=== PATIENT | male | born 1950 | race Asian ===

== ENCOUNTER 2016-12-29 03:13 | Inpatient (IN) | payer OTHER ==
[2016-12-29] VITALS (18 sets, daily range): BP systolic 101–152; BP diastolic 62–89
[~2016-12-29] VITALS: Ht 167.6 cm; Wt 69.0 kg
[~2016-12-29 03:13] MED LIST: NORCO 5/3251 TABLET PO
[2016-12-29 03:51] LABS: EOSINOPHIL (%) 2.7 % (0-5); EOSINOPHIL COUNT 0.1 K/uL (0-0.3); IMMATURE GRANULOCYTE (%) 0.5 % (0.0-0.7); INSTRUMENT ABS NEUTROPHIL CT 2.4 K/uL; LYMPHOCYTE COUNT 1.3 K/uL (1.0-2.8); MCHC 32.3 G/DL (30.0-36.0); MCV 92.9 FL (86-99); MEAN PLAT.VOLUME 9.4 uM^3 (9.0-12.4); MONOCYTE (%) 4.7 % (3-12); MONOCYTE COUNT 0.2 K/uL (0-0.8); NEUTROPHIL (%) 58.5 % (45-76); NEUTROPHIL COUNT 2.4 K/uL (1.8-6.4); PLATELET COUNT 171 K/uL (156-360); RBC DIS.WIDTH-CV 12.6 % (11.8-14.6); RBC DIS.WIDTH-SD 42.6 % (39-53); RED BLOOD COUNT 3.23 M/uL (4.00-5.50)
[2016-12-29 04:03] LABS: CHLORIDE 108 mEq/L (99-109); POTASSIUM 3.6 mEq/L (3.7-5.4); SODIUM 140 mEq/L (136-147)
[2016-12-29 04:04] LABS: INTER. NORMALIZED RATIO 1.1; PROTHROMBIN TIME 10.7 (9.2-11.2); PTT 22.9 (25-32)
[2016-12-29 04:05] LABS: GLUCOSE 152 mg/dL (70-99)
[2016-12-29 04:06] LABS: ANION GAP 7 MEQ/L (2-14)
[2016-12-29 04:07] LABS: TOTAL BILIRUBIN 0.4 mg/dL (0.0-1.0)
[2016-12-29 04:08] LABS: ALKALINE PHOSPHATASE 43 IU/L (3-129)
[2016-12-29 04:09] LABS: GFR ESTIMATE (CALCULATED) > 59 mL/min/
[2016-12-29 04:10] LABS: UREA NITROGEN (BUN) 27 mg/dL (9-23)
[2016-12-29 04:12] LABS: LIPASE 26 U/L (1.0-51.0)
[2016-12-29 04:13] LABS: TROP-I INTERPRETATION NEGATIVE; TROPONIN-I < 0.01 ng/mL (0.0-0.30)
[2016-12-29 07:21] LABS: ALKALINE PHOSPHATASE 42 IU/L (3-129); ANION GAP 6 MEQ/L (2-14); CHLORIDE 108 MEQ/L (99-109); GFR ESTIMATE (CALCULATED) > 59 mL/min/; GLUCOSE 145 mg/dL (70-99); SAMPLE HEMOLYSIS CHECK 0; SAMPLE ICTERIC CHECK 0; SAMPLE LIPEMIA CHECK 0; SODIUM 139 MEQ/L (136-147); TOTAL BILIRUBIN 0.4 MG/DL (0.0-1.0); UREA NITROGEN (BUN) 27 mg/dL (9-23)
[2016-12-29 10:28] LABS: METH RESISTANT S AUREUS PCR NEGATIVE (NEGATIVE); PROBE CHECK PASS; SPECIMEN PROCESSING CONTROL PASS
[2016-12-29 13:14] LABS: HEMATOCRIT 34.4 % (38.0-50.0); MCV 91.2 FL (86-99)
[2016-12-29] MEDS ORDERED: AMLODIPINE BESYL5 MG PO (15:24)
[2016-12-29] MEDS ORDERED: LO-DOSE ASPIRIN81 M1 PO (15:41)
[2016-12-29] MEDS ORDERED: LIPITOR10 MG PO ×2 (15:42→18:20)
[2016-12-29 20:34] LABS: HEMATOCRIT 32.3 % (38.0-50.0); MCV 89.5 FL (86-99)
[2016-12-30] VITALS (7 sets, daily range): BP systolic 104–135; BP diastolic 77–89
[2016-12-30 05:56] LABS: HEMATOCRIT 33.9 % (38.0-50.0); MCV 89.9 FL (86-99)
[2016-12-30 12:01] LABS: HEMATOCRIT 33.8 % (38.0-50.0); MCV 89.7 FL (86-99)
[2016-12-30 14:49] LABS: HEMATOCRIT 34.6 % (38.0-50.0); MCV 90.1 FL (86-99)
[2016-12-30] MEDS ORDERED: PANTOPRAZOLE SO40 MG PO (14:52)
== END 2016-12-30 17:00 | disposition home or self-care (01) | DRG 378 ==
LOC: EME → EDBD 03:13 → EDOF 05:48 → 4WEST 05:48 → EDOF 06:18 → 4WEST 07:40
PROVIDERS: Emergency Medicine; Internal Medicine; Internal Medicine Gastroenterology
DX: K25.4 Chronic or unspecified gastric ulcer with hemorrhage (principal); N17.9 Acute kidney failure, unspecified; I95.9 Hypotension, unspecified; T62.91XA Toxic effect of unspecified noxious substance eaten as food, accidental (unintentional), initial encounter; K92.1 Melena; Y92.019 Unspecified place in single-family (private) house as the place of occurrence of the external cause; D50.0 Iron deficiency anemia secondary to blood loss (chronic); E78.5 Hyperlipidemia, unspecified; E87.6 Hypokalemia; I10 Essential (primary) hypertension; Z79.82 Long term (current) use of aspirin; R73.9 Hyperglycemia, unspecified; R19.7 Diarrhea, unspecified; R42 Dizziness and giddiness; R53.1 Weakness; R55 Syncope and collapse
CPT/HCPCS: 71010; 80053; 83690; 84484; 85014; 85018; 85025; 85610; 85730; 86900; 86901; 86920; 87641; 93005; 99281; 99285; C9113; J2405; J2765; J7030; P9016

== ENCOUNTER 2017-11-01 21:21 | Emergency (ER) | payer OTHER ==
[~2017-11-01] VITALS: Ht 162.6 cm; Wt 71.7 kg
[~2017-11-01 21:21] MED LIST changes: +AMLODIPINE BESYL5 MG PO; +LIPITOR10 MG PO; +LO-DOSE ASPIRIN81 M1 PO; +PANTOPRAZOLE SO40 MG PO
[2017-11-01] MEDS ORDERED: ULTRAM50 MG PO (21:55)
[2017-11-01] MEDS ORDERED: NAPROSYN500 MG PO (21:55)
[2017-11-01 22:23] VITALS: BP 127/77
== END 2017-11-01 22:23 | disposition home or self-care (01) ==
LOC: EME 21:21
DX: S49.91XA Unspecified injury of right shoulder and upper arm, initial encounter (principal); X50.3XXA Overexertion from repetitive movements, initial encounter; Y99.0 Civilian activity done for income or pay
CPT/HCPCS: 99281; 99283

== ENCOUNTER 2017-12-18 10:51 | Inpatient (IN) | payer OTHER ==
[~2017-12-18] VITALS: Ht 167.6 cm; Wt 70.6 kg
[~2017-12-18 10:51] MED LIST changes: +NAPROSYN500 MG PO; +ULTRAM50 MG PO
[2017-12-18 11:16] LABS: HEMATOCRIT 38.9 % (38.0-50.0); HEMOGLOBIN 13.2 G/DL (12.5-16.6); MCH 29.6 PG (29.0-34.0); MCHC 33.9 G/DL (30.0-36.0); MCV 87.2 FL (86-99); PLATELET COUNT 272 K/uL (156-360); RBC DIS.WIDTH-CV 16.6 % (11.8-14.6); RBC DIS.WIDTH-SD 53.2 % (39-53); RED BLOOD COUNT 4.46 M/uL (4.00-5.50); WHITE BLOOD COUNT 6.6 K/uL (4.1-10.2)
[2017-12-18 11:27] LABS: CHLORIDE 105 mEq/L (99-109); POTASSIUM 3.8 mEq/L (3.7-5.4); SODIUM 140 mEq/L (136-147)
[2017-12-18 11:29] LABS: GLUCOSE 142 mg/dL (70-99)
[2017-12-18 11:33] LABS: CREATININE 1.1 mg/dL (0.6-1.3); GFR ESTIMATE (CALCULATED) > 59 mL/min/ (58.99-99999)
[2017-12-18 11:34] LABS: UREA NITROGEN (BUN) 27 mg/dL (9-23)
[2017-12-18 11:40] LABS: TROP-I INTERPRETATION NEGATIVE; TROPONIN-I < 0.01 ng/mL (0.0-0.30)
[2017-12-18] MEDS ORDERED: ZOCOR40 MG PO (12:24)
[2017-12-18] MEDS ORDERED: LISINOPRIL20 MG PO (12:25)
[2017-12-18 15:29] VITALS: BP 110/81
[2017-12-18 15:58] LABS: TROP-I INTERPRETATION NEGATIVE; TROPONIN-I < 0.01 ng/mL (0.0-0.30)
[2017-12-18 19:00] VITALS: BP 98/62
[2017-12-18 22:35] VITALS: BP 109/77
[2017-12-19] VITALS (10 sets, daily range): BP systolic 103–158; BP diastolic 67–95
[2017-12-19 04:37] LABS: HEMATOCRIT 35.5 % (38.0-50.0); HEMOGLOBIN 12.3 G/DL (12.5-16.6); MCH 29.9 PG (29.0-34.0); MCHC 34.6 G/DL (30.0-36.0); MCV 86.4 FL (86-99); PLATELET COUNT 251 K/uL (156-360); RBC DIS.WIDTH-CV 16.8 % (11.8-14.6); RBC DIS.WIDTH-SD 53.6 % (39-53); RED BLOOD COUNT 4.11 M/uL (4.00-5.50); WHITE BLOOD COUNT 4.9 K/uL (4.1-10.2)
[2017-12-19 05:05] LABS: CHLORIDE 106 mEq/L (99-109); POTASSIUM 3.7 mEq/L (3.7-5.4); SODIUM 142 mEq/L (136-147)
[2017-12-19 05:07] LABS: GLUCOSE 130 mg/dL (70-99)
[2017-12-19 05:11] LABS: CREATININE 0.8 mg/dL (0.6-1.3); GFR ESTIMATE (CALCULATED) > 59 mL/min/ (58.99-99999)
[2017-12-19 05:12] LABS: TROP-I INTERPRETATION NEGATIVE; TROPONIN-I < 0.01 ng/mL (0.0-0.30); UREA NITROGEN (BUN) 16 mg/dL (9-23)
[2017-12-20 00:25] VITALS: BP 110/62
[2017-12-20 04:07] VITALS: BP 94/61
[2017-12-20 07:01] VITALS: BP 91/61
[2017-12-20 11:49] VITALS: BP 95/54
[2017-12-20 15:28] VITALS: BP 113/59
[2017-12-20 19:30] VITALS: BP 109/68
[2017-12-21 00:28] VITALS: BP 103/64
[2017-12-21 04:46] VITALS: BP 94/55
[2017-12-21 07:08] VITALS: BP 102/60
[2017-12-21] MEDS ORDERED: DILTIAZEM 24HR120 MG PO (08:37)
[2017-12-21] MEDS ORDERED: PRAVASTATIN SOD80 MG PO (08:37)
[2017-12-21] MEDS ORDERED: DIGOXIN125 MCG PO (08:37)
[2017-12-21] MEDS ORDERED: ELIQUIS5 MG PO (08:37)
== END 2017-12-21 10:23 | disposition home or self-care (01) | DRG 310 ==
LOC: EME 10:51 → EDOF 12:44 → 4EAST 12:44 → ENRESERV 12:46 → 4EAST 15:06
PROVIDERS: Emergency Medicine; Internal Medicine
DX: I48.91 Unspecified atrial fibrillation (principal); M25.511 Pain in right shoulder; R20.0 Anesthesia of skin; R20.2 Paresthesia of skin; K25.9 Gastric ulcer, unspecified as acute or chronic, without hemorrhage or perforation; I10 Essential (primary) hypertension; M50.20 Other cervical disc displacement, unspecified cervical region; E78.5 Hyperlipidemia, unspecified; Z87.891 Personal history of nicotine dependence; Z91.81 History of falling; Z82.49 Family history of ischemic heart disease and other diseases of the circulatory system
CPT/HCPCS: 71045; 80048; 84484; 85027; 93005; 93306; 99281; 99285; J1160; J1650; J7050